=== PATIENT | female | born 1960 | race Two or more races ===

== ENCOUNTER 2018-12-01 14:45 | Emergency (ER) | payer OTHER ==
[~2018-12-01] VITALS: Ht 144.8 cm; Wt 55.8 kg
== END 2018-12-01 19:10 | disposition home or self-care (01) ==
LOC: ER 14:45
DX: S61.212A Laceration without foreign body of right middle finger without damage to nail, initial encounter (principal); W19.XXXA Unspecified fall, initial encounter; Y93.89 Activity, other specified; Y92.59 Other trade areas as the place of occurrence of the external cause; Y99.8 Other external cause status